=== PATIENT | female | born 1980 | race Caucasian/White ===

== ENCOUNTER 2023-10-22 16:40 | Emergency (ER) | payer OTHER, SELFPAY ==
[2023-10-22 16:47] VITALS: BP 117/80; PULSE 83; RESP 16; TEMP 37.1; O2SAT 100
--- NOTE | 2023-10-22 16:53 | ED.EYEPROB ---
HPI - Eye Problem General Chief complaint: Eye Problems Stated complaint: Right Eye Problem Time Seen by Provider: 10/22/23 16:54 Source: patient and RN notes reviewed Mode of arrival: ambulatory Limitations: no limitations History of Present Illness HPI Narrative: 43 year old female presents concern for right eye erythema, irritation, discharge that started today. Reports green discharge. Denies vision changes. Denies cold symptoms. chief complaint: eye redness Related Data Allergies Allergy/AdvReac Type Severity Reaction Status Date / Time No Known Allergies Allergy Unverified 10/22/23 16:41 Review of Systems Review of Systems: CONSTITUTIONAL: Denies malaise, chills, sweats, or fever. EYES: Denies visual changes. Reports right eye redness, irritation, discharge. ENT: Denies rhinorrhea, congestion, sinus pain, otalgia or sore throat. SKIN: Denies rash or itching. NEUROLOGIC: Denies numbness, weakness, or headache. PSYCHIATRIC: Denies anxiety or depression. All systems reviewed & are unremarkable except as noted in HPI and below PMFSH Comments At time of signature, agree with nursing past medical, surgical, social and family history. There is no relevant family history pertinent to the presenting complaint Exam Narrative: GENERAL: Well-appearing, well-nourished, and in no acute distress. HEAD: Normocephalic, atraumatic. EYES: PERRLA, sclera clear, and EOMI. No nystagmus. Right sclera and conjunctivae injected with green discharge. Upper and lower eyelid unremarkable, no periorbital edema noted ENT: Nares clear, turbinates pink, no rhinorrhea or epistaxis. Mucous membranes moist. TM pearly cervantes with sharp light reflex bilaterally; no tragal tenderness. NECK: Supple. CHEST: No respiratory distress. Speaks in full sentences. HEART: Regular rate and rhythm. SKIN: Warm, dry, no visible rash. NEURO: Alert and oriented x3. PSYCH: Normal mood and affect Course Course Emergency Course: Patient is aware of diagnosis, understands and agrees to treatment plan. Anticipatory guidance given. Patient agrees to follow-up as directed and is aware of reasons to seek care at the emergency department. Portions of this record may have been created with voice recognition software Level of Care: Express Care Visit Vital Signs Vital signs: Vital Signs Temperature 98.7 F 10/22/23 16:47 Pulse Rate 83 10/22/23 16:47 Respiratory Rate 16 10/22/23 16:47 Blood Pressure 117/80 10/22/23 16:47 Pulse Oximetry 100 10/22/23 16:47 Oxygen Delivery Room Air 10/22/23 16:47 Temperature 98.7 F 10/22/23 16:47 Pulse Rate 83 10/22/23 16:47 Respiratory Rate 16 10/22/23 16:47 Blood Pressure 117/80 10/22/23 16:47 Pulse Oximetry 100 10/22/23 16:47 Oxygen Delivery Room Air 10/22/23 16:47 Reviewed. MDM - Eye Problem MDM Narrative Medical decision making narrative: Consideration of the following conditions may be warranted for the presenting problem, they are not final diagnoses: Bacterial conjunctivitis, allergic conjunctivitis, viral conjunctivitis, foreign body, blepharitis, chalazion, hordeolum, corneal abrasion, preseptal cellulitis, orbital cellulitis. No evidence of proptosis, ophthalmoplegia, vision loss, pain with eye movement. Exam findings show no acute concerns or changes; patient is non-toxic appearing and is in no distress. Patient is appropriate for outpatient treatment and follow-up. Critical Care Time Critical Care Time Critical Care Time: No Discharge Plan Discharge Clinical Impression: Conjunctivitis Patient Disposition: Home, Self-Care Condition: Stable Instructions: Conjunctivitis (ED) Additional Instructions: Do not touch or rub your eye. Use a warm or cool washcloth on your eye for comfort Use eyedrops as directed Practice good handwashing and hygiene to prevent spread of infection You may take Tylenol or ibuprofen for pain Follow-up with PCP or
[2023-10-22 16:58] VITALS: BP 117/80; PULSE 83; RESP 16; TEMP 37.1; O2SAT 100
== END 2023-10-22 17:06 | disposition home or self-care (01) ==
PROVIDERS: Emergency Provider Nurse Practitioner
DX: H10.9 Unspecified conjunctivitis (principal)
CPT/HCPCS: 99203; G0463

== ENCOUNTER 2023-12-31 08:48 | Emergency (ER) | payer OTHER, SELFPAY ==
--- NOTE | ~2023-12-31 | XR_ITS ---
EXAMINATION: XR knee RT min 4V DATE: 12/31/2023 09:06 INDICATION: Right knee pain and swelling. TECHNIQUE: 4 views of right knee were obtained. COMPARISON: None. FINDINGS: Bone alignment is normal. No fracture. There is mild tricompartmental osteoarthritis of the knee. No knee joint effusion. IMPRESSION: 1. Mild right knee osteoarthritis. Reviewed, dictated and finalized at location A.
[2023-12-31 08:50] VITALS: BP 130/95; PULSE 81; RESP 18; TEMP 36.7; O2SAT 99
--- NOTE | 2023-12-31 09:30 | ED.LOWEXIN ---
HPI - Extremity Injury (Lower) General Chief Complaint: Extremity Injury, Lower Stated Complaint: right knee pain Time Seen by Provider: 12/31/23 09:12 Source: patient Mode of arrival: ambulatory Limitations: no limitations History of Present Illness HPI Narrative: This is a 43-year-old female that presents to the emergency department for right knee pain ongoing over the last week. No known injury or trauma. Pain is worse with weight-bearing and relieved with rest. She has been taking [id number] anti-inflammatories with little relief. She tried to go to work today and was not able to perform her duties which prompted her to be seen. Denies fever, erythema, edema. Related Data Allergies Allergy/AdvReac Type Severity Reaction Status Date / Time No Known Allergies Allergy Unverified 10/22/23 16:41 Review of Systems Review of Systems: CONSTITUTIONAL: Denies fever SKIN: Denies rash or itching. MUSCULOSKELETAL: Reports joint pain, and myalgia. NEUROLOGIC: Denies numbness, or weakness. All systems reviewed & are unremarkable except as noted in HPI and below PMFSH Past Medical History Medical History (Updated 12/31/23 @ 09:40 by Tena Beckwith PA-C) No active medical problems Social History Social History (Updated 12/31/23 @ 09:40 by Tena Beckwith PA-C) Substance use: never Exam Narrative: GENERAL: Well-appearing, well-nourished, and in no acute distress. HEAD: Normocephalic, atraumatic. EYES: EOMI. EXTREMITIES: Normal range of motion. No edema, erythema or warmth. Normal DP pulse. Normal sensation SKIN: Warm, dry, no rash. NEURO: No focal deficits. Alert and oriented x3. PSYCH: Normal mood and affect Course Course Emergency Course: patient updated on her workup and agrees with plan of care Vital Signs Vital signs: Vital Signs Temperature 98.1 F 12/31/23 08:50 Pulse Rate 81 12/31/23 08:50 Respiratory Rate 18 12/31/23 08:50 Blood Pressure 130/95 H 12/31/23 08:50 Pulse Oximetry 99 12/31/23 08:50 Oxygen Delivery Room Air 12/31/23 08:50 Temperature 98.1 F 12/31/23 08:50 Pulse Rate 81 12/31/23 08:50 Respiratory Rate 18 12/31/23 08:50 Blood Pressure 130/95 H 12/31/23 08:50 Pulse Oximetry 99 12/31/23 08:50 Oxygen Delivery Room Air 12/31/23 08:50 MDM - Extremity Injury (Lower) MDM Narrative Medical decision making narrative: Patient presents to the emergency department for right knee pain ongoing over the last week. No known injury or trauma. She is afebrile and nontoxic appearing. No erythema, edema or warmth of the knee. Right knee x-ray shows osteoarthritis. Patient was updated on her workup and agrees with plan of care. Will be prescribed topical and oral anti-inflammatories as needed. Instructed on use of Tylenol in addition. She is to follow up with primary provider. She was given warnings to return to the ER Differential Diagnosis Differential diagnosis: Likely acute internal derangement of knee and other ( osteoarthritis) Imaging Data Radiologist's impression: ITS Impressions Knee X-Ray 12/31/23 09:08 IMPRESSION: 1. Mild right knee osteoarthritis. Critical Care Time Critical Care Time Critical Care Time: No Discharge Plan Discharge Clinical Impression: Acute pain of right knee Osteoarthritis Qualifiers: Osteoarthritis location: knee Osteoarthritis type: unspecified Laterality: right Qualified Code(s): M17.11 - Unilateral primary osteoarthritis, right knee Patient Disposition: Home, Self-Care Condition: Stable Instructions: Osteoarthritis (ED), Knee Pain (ED) Additional Instructions: Return to the ER if you experience fever, redness and swelling of your leg, weakness, numbness, or any other symptoms that are concerning to you Rest, use ice. Use prescribed topical or oral anti-inflammatories as needed. Tylenol as needed for pain Follow up with primary care doctor Neeta
== END 2023-12-31 09:52 | disposition home or self-care (01) ==
PROVIDERS: Emergency Provider Physician Assistant
DX: M17.11 Unilateral primary osteoarthritis, right knee (principal)
CPT/HCPCS: 73564; 99283